=== PATIENT | female | born 1955 | race Caucasian/White ===

== ENCOUNTER 2019-09-26 09:39 | Emergency (ER) | payer BC ==
[~2019-09-26] VITALS: Ht 157.4 cm; Wt 81.6 kg
[~2019-09-26 09:39] MED LIST: 'PARAFON FORTE500 M1 PO; ANAPROX DS550 MG PO; CLARITIN10 MG PO; FLONASE 0.05% 121 EA NAS; FLONASE ALLERG9.9 ML NAS; HYDROCODONE BIT1 T11 PO; MACROBID100 M1 PO; MOTRIN800 MG PO; NAPROSYN500 MG PO; NORCO 325 MG-51 TAB PO; NORFLEX100 MG PO; PARAFON FORTE500 MG PO; PREDNICOT20 MG PO; PREDNISONE10 MG PO; ROBITUSSIN DM 105 ML PO; SKELAXIN800 MG PO; ZITHROMAX Z PA250 MG PO
[2019-09-26 09:51] VITALS: BP 168/100
[2019-09-26] MEDS ORDERED: IBU800 MG PO (10:36)
[2019-09-26] MEDS ORDERED: FLONASE ALLERG9.9 ML NAS (10:36)
[2019-09-26] MEDS ORDERED: VISTARIL25 MG PO (10:36)
[2019-09-26] MEDS ORDERED: DOXYCYCLINE100 M3 PO (10:36)
== END 2019-09-26 10:45 | disposition home or self-care (01) ==
LOC: ED 09:39
DX: S29.012A Strain of muscle and tendon of back wall of thorax, initial encounter (principal); J01.90 Acute sinusitis, unspecified; M25.512 Pain in left shoulder; H92.03 Otalgia, bilateral; M79.7 Fibromyalgia; M06.9 Rheumatoid arthritis, unspecified; F17.200 Nicotine dependence, unspecified, uncomplicated; Z88.0 Allergy status to penicillin; Z88.2 Allergy status to sulfonamides; Z79.899 Other long term (current) drug therapy; X50.0XXA Overexertion from strenuous movement or load, initial encounter; Y93.89 Activity, other specified; Y92.69 Other specified industrial and construction area as the place of occurrence of the external cause; Y99.8 Other external cause status